=== PATIENT | female | born 2000 | race Caucasian/White ===

== ENCOUNTER 2018-08-07 10:19 | Emergency (ER) | payer OTHER ==
[~2018-08-07] VITALS: Ht 160 cm; Wt 60.9 kg
[2018-08-07 10:47] VITALS: BP 124/59
--- NOTE | 2018-08-07 10:50 | NUR ---
PT AMBULATED TO BED 11
--- NOTE | 2018-08-07 10:51 | NUR ---
PT AMBULATED TO ED BED 11
--- NOTE | 2018-08-07 10:52 | NUR ---
PT PTRESENTS TO ED FOR EVALUATION OF RASH TO CHEST. PT STATED BUG BITE APROXIMATELY 30 MINS AGO. RASH TO UPPER CHEST. AAO X4, GCS 15, AMBULATORY WITH STDEAY GAIT. REPSIATIONS EVEN AND UNALBORED. SKIN WAMR/PINK/DRY, +PMSC. UPPER CHEST RASH AND NOTED. VSS, NO ACUTE DISTRESS AT THIS TIME. WILL CONTIENT O MONITOR
--- NOTE | 2018-08-07 11:15 | NUR ---
Dr. An evaluating patient at bedside.
[2018-08-07] MEDS ORDERED: hydrOXYzine HCL 25 MG TAB PO ONE (11:25)
[2018-08-07] MEDS ORDERED: FAMOTIDINE 20 MG TAB PO ONE (11:25)
[2018-08-07] MEDS ORDERED: diphenhydrAMINE 50 MG/ML VIAL IM ONE (11:25)
[2018-08-07] MEDS ORDERED: DEXAMETHASONE 10 MG/ML VIAL IM ONE (11:25)
--- NOTE | 2018-08-07 12:09 | NUR ---
Patient discharged with v/s stable. Written and verbal after care instructions given and explained. Patient alert, oriented and verbalized understanding of instructions. Ambulatory with steady gait. All questions addressed prior to discharge. ID band removed. Patient advised to follow up with PMD. Rx of ATARAX 25 MG, PREDNISOLONE 20 MG given. Patient educated on indication of medication including possible reaction and side effects. Opportunity to ask questions provided and answered.
[2018-08-07 12:10] VITALS: BP 110/60
== END 2018-08-07 12:09 | disposition home or self-care (01) ==
LOC: MED 10:19
DX: L50.9 Urticaria, unspecified (principal)
CPT/HCPCS: 96372; 99283; J1100; J1200